=== PATIENT | female | born 1950 | race Caucasian/White ===

== ENCOUNTER 2023-08-02 07:55 | Outpatient (CLI) | payer MEDICARE, OTHER, SELFPAY ==
--- NOTE | 2023-08-02 08:00 | FL_ITS ---
WS: [id number] Exam: [place] barium enema [id number] Date/Time of Exam: 08/02/2023 8:25 AM Reason For Exam: UNABLE TO ADVANCE SCOPE INTO CECUM DURING COLONOSCOPY Preliminary abdominal survey is unremarkable. The colon fills to the cecum. Barium could not be refluxed into the terminal ileum. There was no ryne cation of colonic mass or constricting lesion. Several isolated diverticuli noted in the sigmoid and LEFT colon. The colon is not displaced. The haustral pattern is well-maintained. IMPRESSION: 1. No indication of colonic mass or constricting lesion. 2. Several small isolated diverticuli in the sigmoid and LEFT colon.
== END 2023-08-02 07:56 | disposition home or self-care (01) ==
PROVIDERS: PCP Family Medicine; Visit Provider Surgery Vascular Surgery
DX: R93.3 Abnormal findings on diagnostic imaging of other parts of digestive tract (principal); K57.30 Diverticulosis of large intestine without perforation or abscess without bleeding
CPT/HCPCS: 74270